=== PATIENT | male | born 2000 | race Hispanic/Latino ===

== ENCOUNTER 2019-06-02 20:13 | Emergency (ER) | payer SELFPAY ==
[2019-06-02 20:22] VITALS: BP 123/69; PULSE 88; RESP 17; TEMP 36.7; O2SAT 100
--- NOTE | 2019-06-02 20:31 | ED.HEATRA ---
HPI - Head Injury General Chief complaint: Head Injury Stated complaint: hit head on wall; ?LOC Time Seen by Provider: 06/02/19 20:20 Source: patient Mode of arrival: ambulatory Limitations: no limitations History of Present Illness HPI Narrative: This is a 18 year old male that presents to the ER after a head injury today. Reports he was playing indoor soccer and his friend tackled him and he hit his head on the wall. He is unsure if he lost consciousness. Reports hitting his left shoulder as well. Reports a bump on the left side of his scalp. Also reports some left shoulder pain. Denies vision changes, vomiting, numbness or weakness. Related Data Home Medications Medication Instructions Recorded Confirmed No Home Medications 06/02/19 06/02/19 Allergies Allergy/AdvReac Type Severity Reaction Status Date / Time No Known Allergies Allergy Verified 06/02/19 20:17 Review of Systems Review of Systems: Narrative: CONSTITUTIONAL: Denies fever EYES: Denies visual changes GASTROINTESTINAL: Denies vomiting MUSCULOSKELETAL: Reports joint pain, and myalgia. NEUROLOGIC: Denies headache, numbness, or weakness. All systems reviewed & are unremarkable except as noted in HPI and below PMFSH Past Medical History Medical History (Updated 06/02/19 @ 20:37 by Jihan Boles PA-C) Healthy male adult Social History Social History (Updated 06/02/19 @ 20:34 by Jihan Boles PA-C) Smoking status: Never smoker Substance use: never Exam Narrative: Exam Narrative: GENERAL: Well-appearing, well-nourished, and in no acute distress. HEAD: Normocephalic. Small left scalp hematoma EYES: PERRLA and EOMI. ENT: Nares clear, no rhinorrhea or epistaxis. Mucous membranes moist. Oropharynx without tonsillar hypertrophy exudate or other lesions. Bilateral TMs pearly hagen non-bulging NECK: Supple. No adenopathy or masses. Normal ROM without pain. No midline tenderness CHEST: Clear to auscultation. No respiratory distress. No wheezes rales or rhonchi HEART: Regular rate and rhythm. No murmur heard. Normal peripheral pulses. EXTREMITIES: Normal range of motion. No edema or obvious deformity. Pain with active ROM of the left shoulder. Strength equal in bilateral upper and lower extremities SKIN: Warm, dry, no rash. NEURO: No focal deficits. Alert and oriented x3. CN II-XII grossly intact. Normal finger-nose. Normal [id number]. Normal gait PSYCH: Normal mood and affect Course Vital Signs Vital signs: Vital Signs Temperature 98.1 F 06/02/19 20:22 Pulse Rate 88 06/02/19 20:22 Respiratory Rate 17 06/02/19 20:22 Blood Pressure 123/69 06/02/19 20:22 Pulse Oximetry 100 06/02/19 20:22 Temperature 98.1 F 06/02/19 20:22 Pulse Rate 88 06/02/19 20:22 Respiratory Rate 17 06/02/19 20:22 Blood Pressure 123/69 06/02/19 20:22 Pulse Oximetry 100 06/02/19 20:22 MDM - Head Injury MDM Narrative Medical decision making narrative: Patient presents to the emergency department for head injury today. Unsure if he lost consciousness. He denies any vision changes, vomiting, numbness or weakness. He is neurologically intact. Vitals are normal. Patient also reports some left shoulder pain. He refused a shoulder x-ray. Patient will be given a primary care doctor follow-up. He was given warnings to return to the ER Critical Care Time Critical Care Time Critical Care Time: No Discharge Plan Discharge Clinical Impression: Acute pain of left shoulder Closed head injury Qualifiers: Encounter type: initial encounter Qualified Code(s): S09.90XA - Unspecified injury of head, initial encounter Patient Disposition: Home, Self-Care Condition: Stable Instructions: Head Injury (ED) Additional Instructions: Return to the emergency department if you experience vision changes, vomiting, numbness or weakness, or any other symptoms that are concerning to you Rest. Ice to the area. Tylenol or ibuprofen as neede
== END 2019-06-02 20:47 | disposition home or self-care (01) ==
LOC: ANHED 20:41
PROVIDERS: Emergency Provider Emergency Medicine
DX: S09.90XA Unspecified injury of head, initial encounter (principal); M25.512 Pain in left shoulder; W03.XXXA Other fall on same level due to collision with another person, initial encounter; Y93.66 Activity, soccer
CPT/HCPCS: 99283